=== PATIENT | male | born 1955 | race Caucasian/White ===

== ENCOUNTER 2017-06-01 20:17 | Emergency (ER) | payer OTHER ==
[~2017-06-01] VITALS: Ht 165.1 cm; Wt 68.2 kg
[~2017-06-01 20:17] MED LIST: ACYC400T2 PO; ASPI-973 PO; FLUT16SP NS; HYDR25TA4 PO; ROSU40TA20 PO
[2017-06-01] MEDS ORDERED: Famotidine Inj 20 MG in IV Premix 1 EACH IV ONE (20:25)
[2017-06-01] MEDS ORDERED: Dexamethasone 10 mg/mL Inj IVPUSH ONE (20:25)
[2017-06-01 20:36] VITALS: BP 122/55; PULSE 93; RESP 26; O2SAT 95
--- NOTE | 2017-06-01 20:41 | ED.REPORT ---
HPI-Allergic Reaction Date of Service Jun 01, 2017 ED Provider: Todd Tsang DO Pt is an otherwise healthy 62 year old male who presents to the ED after multiple bee stings onset 20:00 today. He c/o associated erythema, pain, and neck swelling. He denies difficulty talking and odynophagia. Per pt, he was gardening when he accidentally stepped on a bees nest. He states that he was stung 5-6 times at least. Nursing Notes Stated Complaint: HORNET STINGS, ALLERGIC Chief Complaint: Allergic Reaction Nursing Notes Reviewed: Yes Allergies: Coded Allergies: Sulfa (Sulfonamide Antibiotics) (Verified Allergy, Unknown, 06/01/17) Uncoded Allergies: BEES (Allergy, Unknown, 06/01/17) Scheduled Acyclovir (Acyclovir) 400 Mg Tablet 400 MG PO BID Aspirin (Aspirin) 81 Mg Tablet 81 MG PO DAILY Fluticasone Propionate (Fluticasone Propionate Nasal) 16 Gm Wilber.susp 1 SPRAY NS BID Hydrochlorothiazide (Hydrochlorothiazide) 25 Mg Tablet 25 MG PO DAILY Rosuvastatin Calcium (Rosuvastatin Calcium) 40 Mg Tablet 40 MG PO HS General Time Seen by MD: 20:24 Chief Complaint Insect bite/sting Hx Obtained From: Patient Arrived By: Walk-in Onset Occurred: Just prior to arrival Symptom Duration: Since onset Quality: Painful Severity: Current: Moderate Severity: Maximum: Moderate Recent Healthcare: No recent doctor visit, No recent hospitalization Similar Sx Previous: No Past Medical History Past Medical History None reported Past Surgical History Denies Smoking History Unknown if Ever Smoker Social History Alcohol Use: Denies alcohol use Drug Use: Denies drug use Ambulatory Status Independent Review of Systems Denies difficulty talking Denies odynophagia + Erythema to neck Skin: Reports Swelling (neck) Complete sys rev & neg: except as marked. Physical Exam Initial Vital Signs Vital Signs (First) Date Time Temp Pulse Resp B/P Pulse Ox O2 Delivery O2 Flow Rate FiO2 06/01/17 20:36 36.4 93 26 122/55 95 Room Air Initial VS: Reviewed Head / Eyes: Atraumatic, Normocephalic Neck: Supple, Full range of motion Abdomen / GI: Soft, Non-tender Extremities: Vascular intact, Neuro intact Neurologic: Alert, Oriented, Nonfocal Psychiatric: Mood/affect normal, Behavior normal General/Constitutional: Awake, Alert Respiratory / Chest: Atraumatic, Breath sounds NL, Breath sounds = bilat Cardiovascular: Heart rate NL, Regular rhythm, Heart sounds NL Skin: Warm, Dry Diffuse urticaria Neck: Full range of motion Swelling in neck Interpretation & Diagnostics Lab Results Interpretation Test 06/01/17 20:30 Hold Purple Top Tube Received (Received) Hold [place] Top Tube Received (Received) Re-Eval/Medical Decision Source of Hx: Old records Re-Evaluation/Progress #1: Time of Eval: 21:14 Patient Status: Condition resolved Re-Evaluation/Progress Note: Pt rechecked. All of his symptoms have resolved. All question addressed. Re-Evaluation/Progress #2: Time of Eval: 22:38 Patient Status: Condition resolved Re-Evaluation/Progress Note: Pt rechecked. 2 hours post-epinephrine. Pt feels good and would like to go home. Informed pt of plan for discharge. Pt understands and agrees with plan for discharge. F/U instructions and RTER warnings given. All questions addressed. Counseled Regarding: Diagnosis, Lab results, Need for follow-up, When/why to return to ED Discharge & Departure Primary Impression: Anaphylaxis Encounter type: initial encounter Qualified Code: T78.2XXA - Anaphylactic shock, unspecified, initial encounter Disposition: Home Discharge Condition All VS Reviewed: Yes Condition: Stable Patient Instructions: Anaphylaxis (ED) Additional Instructions: Take Prednisone daily for 5 days. Take [id number] Benadryl for the hives. Keep an epi-pen with you at all times. Call your primary care doctor on Sunday for a follow-up appointment next week. . Return to the Emergency Department for any new or worrisome symptoms. Referrals: Binu Ch MD Crit Care Except Billable Proc Time Spent: 30-74 minutes Services Performed: Patient management by me, Time spent at bedside, Documentation in record, Other (managing anaphylaxis with IV medications and intramuscular epinephrine.) Scribe Attestation Portions of this note were transcribed by Catina Bustillo. I, Dr. Tsang personally performed the history, physical exam and medical decision-making; I reviewed and confirmed the accuracy of the information in the transcribed note. Signed by : Constance Baez, 06/01/17. copies to: Binu Ch MD, Todd P DO Jun 01, 2017 20:41 Catina Renteria Jun 01, 2017 20:49
[2017-06-01 21:44] VITALS: BP 108/48; PULSE 83; RESP 19; O2SAT 99
[2017-06-01 23:03] VITALS: BP 110/57; PULSE 79; RESP 17; O2SAT 95
[2017-06-02] MEDS ORDERED: Sodium Chloride LOK Flush 10 mL Syringe IVFLUSH SCH (00:30)
== END 2017-06-01 23:04 | disposition home or self-care (01) ==
LOC: SED 20:17
DX: T63.441A Toxic effect of venom of bees, accidental (unintentional), initial encounter (principal); Y93.H2 Activity, gardening and landscaping; Y92.017 Garden or yard in single-family (private) house as the place of occurrence of the external cause; Y99.8 Other external cause status; Z79.82 Long term (current) use of aspirin; Z88.2 Allergy status to sulfonamides
CPT/HCPCS: 96372; 96374; 96375; 99291; J0171; J1100; J1200; J3490